=== PATIENT | female | born 1960 | race Caucasian/White ===

== ENCOUNTER 2018-10-22 00:18 | Emergency (ER) | payer BC ==
[2018-10-22] MEDS ORDERED: Ketorolac Tromethamine 30 MG/ML VIAL ONE (00:37)
--- NOTE | 2018-10-22 07:37 | RAD ---
EXAM: 3 views of the right foot HISTORY: Right foot pain COMPARISON: None FINDINGS: 3 views of the right foot shows no evidence of acute fracture or dislocation. Postsurgical changes are seen of the great toe. No soft tissue swelling is seen. No degenerative changes are present. IMPRESSION: No evidence of acute osseous abnormality.
--- NOTE | 2018-10-22 07:40 | ULT ---
PRELIMINARY REPORT/[facility]/EMERGENCY AFTER HOURS PROCEDURE: EXAM: US Duplex Right Lower Extremity Veins, Limited EXAM DATE/TIME: 10/22/2018 1:16 AM CLINICAL HISTORY: 57 years old, female; Pain and injury or trauma; Injury history[place] [facility]; Initial encounter; Swelling (edema); Leg, lower; Right; Injury date: 10/14/18; Injury details: Dontae mped RT small toes on [facility]; Prior surgery; Surgery date: 6+ months; Surgery type: RT bunion surgery 2010, broke RT ankle 2014; Patient HX: HX previous dvt's bilt TECHNIQUE: Imaging protocol: Real-time Duplex ultrasound of the Right Lower Extremity with 2-D terrazas scale, color Doppler flow and spectral waveform analysis. Limited exam was focused on the right lower extremity veins. COMPARISON: No relevant prior studies available. FINDINGS: Right deep veins: Unremarkable. The common femoral, femoral, popliteal and visualized calf veins are patent without thrombus. Normal Doppler waveforms. Normal compressibility and/or augmentation response. Right superficial veins: Unremarkable. Saphenofemoral junction is patent without thrombus. Soft tissues: Calf and foot edema. IMPRESSION: No evidence of deep vein thrombosis. Thank you for allowing us to participate in the care of your patient. Dictated and Authenticated by: Rodrick Echeverria MD 10/22/2018 2:07 AM Central Time ([place] & [place]) FINAL REPORT EMERGENCY AFTER HOURS US DUPLEX RIGHT LOWER EXTREMITY VEINS LIMITED: FINDINGS/IMPRESSION: I agree with the findings and impression given in the preliminary report per [facility] physician. No evide nce of dvt. . Transcribed Date/Time: 10/22/2018 8:07 AM
== END 2018-10-22 01:53 | disposition home or self-care (01) ==
LOC: SCSER 00:18
DX: M79.671 Pain in right foot (principal); Z86.718 Personal history of other venous thrombosis and embolism; I10 Essential (primary) hypertension; Z79.899 Other long term (current) drug therapy
CPT/HCPCS: 96372; J1885

== ENCOUNTER 2019-02-18 12:38 | Outpatient (CLI) | payer BC, OTHER ==
--- NOTE | 2019-02-18 13:41 | ULT ---
EXAM: Left lower extremity venous Doppler HISTORY: Anterior left calf pain. Patient had left hip replacement 6 weeks ago. FINDINGS: Grayscale, color-flow, Doppler evaluation, spectral analysis of the left lower extremity venous struc tures is performed with 2-D imaging. The left common femoral, superficial femoral, popliteal, posterior tibial, proximal greater saphenous and profunda femoral veins are imaged. There is normal luminal compressibility, flow, and augmentation in the visualized deep venous structu res of the left lower extremity. IMPRESSION: No evidence of a deep vein thrombosis in the visualized deep venous structures left lower extremity.
== END 2019-02-18 12:39 | disposition home or self-care (01) ==
LOC: ULT 12:38
PROVIDERS: ATTEND Nurse Practitioner Family
DX: M79.605 Pain in left leg (principal)

== ENCOUNTER 2024-05-13 11:54 | Outpatient (CLI) | payer MEDICARE | END 2024-05-13 11:55 | disposition home or self-care (01) | LOC: SCSRAD 11:54 | PROVIDERS: ATTEND Family Medicine | DX: R22.42 Localized swelling, mass and lump, left lower limb (principal) ==